=== PATIENT | male | born 1980 | race Caucasian/White ===

== ENCOUNTER 2020-07-24 12:52 | Emergency (ER) | payer OTHER ==
[~2020-07-24 12:52] MED LIST: LODINE CAP 300300 MG PO; NORCO 5-325 TA1 EACH PO; ZOFRAN ODT 4 MG4 MG PO
[2020-07-24] MEDS ORDERED: ERYTHROMYCIN O3.5 GM OU (14:39)
== END 2020-07-24 14:45 | disposition home or self-care (01) ==
LOC: ER1 12:52
DX: T15.92XA Foreign body on external eye, part unspecified, left eye, initial encounter (principal)
CPT/HCPCS: 65205; 99283